=== PATIENT | female | born 1995 | race Caucasian/White ===

== ENCOUNTER 2021-09-11 14:18 | Emergency (ER) | payer OTHER, SELFPAY ==
--- NOTE | ~2021-09-11 | CT_ITS ---
EXAMINATION: CT abdomen pelvis wo con EXAM DATE: 09/11/2021 17:53 INDICATION: Left-sided abdominal pain. TECHNIQUE: Spiral CT of the abdomen and pelvis was performed without contrast. Axial, coronal and s agittal images of the abdomen and pelvis were reviewed. The dose-length product (DLP) for this exami nation was 611.63 mGy-cm. The exposure was tailored according to patient size (auto mA exposure cont rol), and iterative reconstruction (ASIR) was used as additional dose reduction technique. Comparison is made to prior examination from 2013. FINDINGS: The liver, spleen, adrenal glands and pancreas are unremarkable. Gallbladder is unremarkab le. No biliary obstruction. There is 6 mm stone in the proximal aspect of the left ureter, projects over the left L3 transverse process level. Correlate with KUB. Mild left-sided obstructive nephropath y. Several punctate bilateral calyceal stones and faint medullary nephrocalcinosis. The uterus and o varies are unremarkable, no adnexal mass. The bladder is unremarkable. There is no retroperitoneal or pelvic lymphadenopathy. The appendix is normal. The stomach and small bowel are unremarkable. There is expected amount of c olonic stool. No free intraperitoneal gas. The heart is normal in size. There are no pericardial or pleural effusions. The lung bases are unremarkable. There are no osteoblastic or osteolytic les ions identified. IMPRESSION: 1. Left proximal ureteral 6 mm stone, mild obstructive nephropathy; recommend KUB. 2. Punctate nephrolithiasis and mild medullary nephrocalcinosis. Reviewed, dictated and finalized at location A. RRER MACHINE
--- NOTE | ~2021-09-11 | XR_ITS ---
EXAMINATION: XR abdomen/kub 1V EXAM DATE: 09/11/2021 18:03 INDICATION: Left-sided abdominal pain. Left nephrolithiasis. TECHNIQUE: Frontal projection(s) of the abdomen for interpretation. Comparison is made to prior exami nation from 2014. FINDINGS: Left proximal ureteral 6 mm stone is well-visualized, indicated. Left pelvic calcification is a phlebolith correlating with CT obtained earlier same date. Expected amount of colonic stool. No small bowel obstruction or organomegaly. There are no osseous abnormalities identified. IMPRESSION: Left proximal ureteral stone identified. Reviewed, dictated and finalized at location A. S DEVELOPER
--- NOTE | ~2021-09-11 | US_ITS ---
EXAMINATION: US pelvic complete w TV DATE: 09/11/2021 16:37 INDICATION: Left lower quadrant pain TECHNIQUE: Multiple transabdominal and endovaginal sonographic images of the pelvis were obtained. COMPARISON: None. FINDINGS: The uterus measures 6.7 x 4.2 x 2.8 cm. The endometrial complex measures 1 mm. The right ov nuria measures 3.1 x 1.8 x 1.9 cm. The left ovary measures 2.8 x 2.1 x 1.6 cm. There is normal vascular flow in the ovaries. There is no free fluid in the pelvis. IMPRESSION: 1. No sonographic correlate for the patient's symptoms. Reviewed, dictated and finalized at location A. UGATED SHEET MATERIAL SHEETER
[2021-09-11 14:57] VITALS: BP 136/78; PULSE 92; RESP 18; TEMP 36.5; O2SAT 99
[2021-09-11 15:48] LABS: Basophils Absolute Auto 0.1 K/mm3 (0.0-0.1); Basophils Percent Auto 0.4 % (0.2-1.2); Eosinophils Absolute Auto 0.1 K/mm3 (0-0.3); Eosinophils Percent Auto 0.9 % (0-4.4); Hematocrit 39.8 % (37.0-47.0); Hemoglobin 13.1 g/dL (12.0-15.0); Immature Granulocyte Absolute 0.08 K/mm3 (0.00-0.031); Immature Granulocyte Percent A 0.6 % (0-0.5); Lymphocytes Absolute Auto 1.36 K/mm3 (0.9-3.2); Lymphocytes Percent Auto 10.6 % (18.3-44.2); Mean Corpuscular HGB Conc 32.9 g/dl (32-36); Mean Corpuscular Hemoglobin 28.7 pg (26-34); Mean Corpuscular Volume 87.1 fl (80-100); Mean Platelet Volume 9.3 fl (7.4-10.4); Monocytes Absolute Auto 0.5 K/mm3 (0.1-0.6); Monocytes Percent Auto 3.9 % (2.6-8.5); Neutrophils Absolute Auto 10.7 K/mm3 (1.3-6.7); Neutrophils Percent Auto 83.6 % (45.5-73.1); Platelet Count Result 400 k/mm3 (150-375); Red Blood Count 4.57 M/mm3 (4.2-5.4); Red Cell Distribution Width 12.9 % (11.5-14.5); White Blood Count 12.8 K/mm3 (4.5-10.0)
--- NOTE | 2021-09-11 15:52 | ED.GENADULT ---
HPI - General Adult General Chief complaint: Abdominal Pain Stated complaint: abd pain Time Seen by Provider: 09/11/21 15:39 Source: RN notes reviewed History of Present Illness HPI narrative: Patient presents emergency department from home for abdominal pain. Patient states pain began this morning pain is located left lower quadrant does not radiate described as sharp and stabbing. States mild associated nausea. Denies any fevers or chills vomiting diarrhea or any other symptoms. States she took Tylenol at home for the pain this morning with minimal relief Related Data Allergies Allergy/AdvReac Type Severity Reaction Status Date / Time No Known Allergies Allergy Verified 09/11/21 15:39 Review of Systems Review of Systems: Gen.: Denies fevers or chills ENT: Denies congestion Respiratory: Denies shortness of breath or cough CV: Denies chest pain or palpitations GI: See HPI Musculoskeletal: Denies back pain or muscle pain Neuro: Denies numbness, tingling, weakness or focal weakness Skin: Denies rash Except as documented, all other systems reviewed and negative [facility] Past Medical History Medical History (Updated 09/11/21 @ 18:36 by Wilton Amos DO) Patient denies significant medical history Social History Social History Smoking status: Never smoker Exam Narrative: APPEARANCE: No acute distress, nontoxic, resting in bed HEENT: Normocephalic, atraumatic, OMM RESPIRATORY: No respiratory distress, clear to auscultation bilaterally with no rhonchi wheezing or rales CARDIOVASCULAR: RRR s murmur ABDOMINAL: Soft nondistended tender palpation left lower quadrant no tenderness left upper quadrant, right upper quadrant right lower quadrant no rebound MUSCULOSKELETAl: Moves all extremities. No clubbing, cyanosis or edema. NEURO: Awake and alert. Following commands, speech normal, no focal deficits SKIN:: Warm, dry. Normal Color PSYCHIATRIC: Normal affect/mood Course Course Emergency Course: Call discussed Dr. Womack agrees plan for discharge to follow-up as an outpatient Patient states she is feeling much better at this time Discussed with patient results of workup and diagnosis. Discussed need for follow-up with primary care, proper use of medication, and reasons to return to the emergency department. Patient understands and agrees to current treatment plan Vital Signs Vital signs: Vital Signs Temperature 97.7 F 09/11/21 14:57 Pulse Rate 92 09/11/21 14:57 Respiratory Rate 18 09/11/21 14:57 Blood Pressure 136/78 09/11/21 14:57 Pulse Oximetry 99 09/11/21 14:57 Temperature 97.7 F 09/11/21 14:57 Pulse Rate 92 09/11/21 14:57 Respiratory Rate 18 09/11/21 14:57 Blood Pressure 136/78 09/11/21 14:57 Pulse Oximetry 99 09/11/21 14:57 Medical Decision Making Vital Signs Vital Signs: Vital Signs Temperature 97.7 F 09/11/21 14:57 Pulse Rate 92 09/11/21 14:57 Respiratory Rate 18 09/11/21 14:57 Blood Pressure 136/78 09/11/21 14:57 Pulse Oximetry 99 09/11/21 14:57 Temperature 97.7 F 09/11/21 14:57 Pulse Rate 92 09/11/21 14:57 Respiratory Rate 18 09/11/21 14:57 Blood Pressure 136/78 09/11/21 14:57 Pulse Oximetry 99 09/11/21 14:57 Lab Data Result diagrams: 09/11/21 15:42 09/11/21 15:42 Labs: Lab Results 09/11/21 09/11/21 09/11/21 Range/Units 15:42 15:42 16:30 WBC 12.8 H (4.5-10.0) K/mm3 RBC 4.57 (4.2-5.4) M/mm3 Hgb 13.1 (12.0-15.0) g/dL Hct 39.8 (37.0-47.0) % MCV 87.1 (80-100) fl MCH 28.7 (26-34) pg MCHC 32.9 (32-36) g/dl RDW 12.9 (11.5-14.5) % Plt Count 400 H (150-375) k/mm3 MPV 9.3 (7.4-10.4) fl Immature Gran % (Auto) 0.6 H (0-0.5) % Neut % (Auto) 83.6 H (45.5-73.1) % Lymph % (Auto) 10.6 L (18.3-44.2) % [place] % (Auto) 3.9 (2.6-8.5) % Eos % (Auto) 0.9 (0-4.4) % Baso % (A
[2021-09-11 16:04] LABS: Alanine Aminotransferase 24 U/L (4-35); Albumin Level 4.5 g/dL (3.5-5.1); Alkaline Phosphatase 98 U/L (38-126); Anion Gap 10 mmol/L (8-16); Aspartate Amino Transferase 26 U/L (14-36); Bilirubin,Total 0.6 mg/dL (0.2-1.3); Blood Urea Nitrogen 15 mg/dL (7-17); Calcium 9.4 mg/dL (8.4-10.2); Carbon Dioxide 25 mmol/L (22-30); Chloride 103 mmol/L (98-107); Estimated CRCL calculation 87 ml/min; Estimated Glomerular Filt Rate > 60; Glucose 134 mg/dL (65-110); Lipase 28 U/L (23-300); Potassium 4.2 mmol/L (3.4-5.0); Sodium 138 mmol/L (137-145)
--- NOTE | 2021-09-11 16:20 | PC.NURSE ---
Pt to ultrasound.
[2021-09-11] MEDS: KETOROLAC 30 MG/ML VIAL (*BKC) IV PUSH (16:31)
[2021-09-11] MEDS: SODIUM CHLORIDE 0.9% IV 1,000 ML 999 ML IV CONT (16:31)
[2021-09-11 17:12] LABS: Add Urine Microscopic? YES; Appearance Urine Cloudy (Clear); Bilirubin Urine Negative (Negative); Blood Urine 3+ (Negative); Color Urine Yellow (Yellow); Glucose Urine UA Negative (Negative); Ketones Urine Negative (Negative); Leukocyte Esterase Ur Negative LEU/UL (Negative); Mucus Urine Heavy /lpf; Nitrate Urine Negative (Negative); Protein Urine 2+ mg/dL (Negative); RBC Urine >75 /hpf (0-2); Specific Grav Ur 1.023 (1.001-1.035); Squamous Epithelial Cell Urine Moderate /hpf (Few); Urobilinogen Urine Negative mg/dL (<2.0); WBC Urine 0-3 /hpf
[2021-09-11] MEDS: TAMSULOSIN HCL 0.4 MG CAPSULE PO (18:29)
[2021-09-11 18:50] VITALS: BP 118/75; PULSE 80; RESP 15; O2SAT 100
== END 2021-09-11 18:54 | disposition home or self-care (01) ==
PROVIDERS: Emergency Medicine; Emergency Provider Emergency Medicine
DX: N13.9 Obstructive and reflux uropathy, unspecified (principal); N20.2 Calculus of kidney with calculus of ureter
CPT/HCPCS: 36415; 74018; 74176; 76830; 76856; 80053; 81001; 81025; 83690; 85025; 96361; 96374; 99284; A9270; J1885; J7030

== ENCOUNTER 2021-10-09 05:00 | Emergency (ER) | payer OTHER, SELFPAY ==
--- NOTE | ~2021-10-09 | CT_ITS ---
EXAMINATION: CT abdomen pelvis wo con EXAM DATE: 10/09/2021 06:11 INDICATION: flank pain fluid / history of kidney stone, left lower quadrant pain, fever. Recent COVI D diagnosis. TECHNIQUE: Spiral CT of the abdomen and pelvis was performed without contrast. Axial, coronal and sag ittal images were reviewed. The dose-length product (DLP) for this examination was 549.21 mGy-cm. T he exposure was tailored according to patient size (auto mA exposure control), and iterative reconstr uction (ASIR) was used as additional dose reduction technique. Comparison is made to prior examinatio n from 09/11/2021. FINDINGS: There is a left mid ureteral 6 mm stone, mild hydroureteronephrosis. Additional punctate ri ght mid calyceal stone. The uterus is anteverted and morphologically normal. The bladder is unrema rkable. The liver, spleen, adrenal glands and pancreas are unremarkable. Gallbladder is unremarkabl e. No biliary obstruction. There is no retroperitoneal or pelvic lymphadenopathy. There are no findings to suggest appendicitis. The stomach and small bowel are unremarkable. There is expected amount of colonic stool. No free intraperitoneal gas. The heart is normal in size. T here are no pericardial or pleural effusions. The lung bases are unremarkable. There are no osteobl astic or osteolytic lesions identified. IMPRESSION: 1. Left mid ureteral 6 mm stone, mild hydronephrosis. consultants would appreciate baseline KUB f or follow-up. 2. Punctate right nephrolithiasis. Reviewed, dictated and finalized at location G. S ROUTER IMPRESSION: 1. Left mid ureteral 6 mm stone, mild hydronephrosis. consultants would leonides reciate baseline KUB for follow-up. 2. Punctate right nephrolithiasis.
[2021-10-09 05:00] VITALS: BP 123/71; PULSE 130; RESP 16; TEMP 38.5; O2SAT 98
[2021-10-09 05:42] LABS: Basophils Absolute Auto 0.02 K/mm3 (0.00-0.10); Basophils Percent Auto 0.1 % (0.0-1.0); Hematocrit 34.2 % (35.0-49.0); Hemoglobin 11.5 g/dL (12.0-15.0); Immature Granulocyte Absolute 0.11 K/mm3 (0.00-0.00); Immature Granulocyte Percent A 0.7 % (0.0-0.0); Lymphocytes Percent Auto 4.4 % (18.0-42.0); Mean Corpuscular HGB Conc 33.6 g/dL (32.0-36.0); Mean Corpuscular Hemoglobin 28.6 pg (27.0-31.0); Mean Corpuscular Volume 85.1 fL (78.0-102.0); Mean Platelet Volume 9.5 fl (9.2-11.8); Monocytes Absolute Auto 1.37 K/mm3 (0.10-0.90); Monocytes Percent Auto 8.6 % (2.0-11.0); Neutrophils Absolute Auto 13.7 K/mm3 (1.7-7.2); Neutrophils Percent Auto 86.2 % (50.0-70.0); Platelet Count Result 262 K/mm3 (150-420); Red Blood Count 4.02 M/mm3 (4.20-5.40); Red Cell Distribution Width 12.4 % (11.6-14.4); White Blood Count 15.9 K/mm3 (4.8-10.8)
[2021-10-09 05:45] LABS: Add Urine Microscopic? YES; Appearance Urine Clear (Clear); Bilirubin Urine Negative (Negative); Blood Urine 2+ (Negative); Color Urine Brown (Yellow); Glucose Urine UA Negative (Negative); Ketones Urine 3+ (Negative); Leukocyte Esterase Ur 2+ (Negative); Nitrate Urine Positive (Negative); Protein Urine 2+ (Negative); Specific Grav Ur >= 1.030 (1.010-1.020); Urobilinogen Urine 0.2 mg/dL (0.2-1.0)
[2021-10-09 05:47] LABS: Pregnancy On Board Control Positive; Urine Pregnancy Test Negative
[2021-10-09] MEDS: SODIUM CHLORIDE 0.9% IV 1,000 ML 999 ML IV CONT (05:49)
[2021-10-09] MEDS: KETOROLAC 30 MG/ML VIAL (*BKC) IV PUSH (05:52)
[2021-10-09 05:53] LABS: Bacteria Urine 3+ /hpf; RBC Urine >75 /hpf (0-2); Squamous Epithelial Cell Urine Few /hpf (Few); WBC Urine >75 /hpf (0-3)
[2021-10-09 05:59] LABS: Alanine Aminotransferase 17 U/L (14-59); Albumin Level 3.3 g/dL (3.4-5.0); Alkaline Phosphatase 78 U/L (46-116); Anion Gap 13 mmol/L (8-16); Aspartate Amino Transferase 12 U/L (15-37); Bilirubin,Total 0.7 mg/dL (0.00-1.00); Blood Urea Nitrogen 14 mg/dL (7-18); Calcium 8.6 mg/dL (8.5-10.1); Carbon Dioxide 23 mmol/L (21-32); Chloride 99 mmol/L (98-108); Estimated CRCL calculation 80 ml/min; Estimated Glomerular Filt Rate > 60; Glucose 139 mg/dL (70-99); Osmolality Calculated 282 mOsm/kg (285-295); Potassium 3.9 mmol/L (3.5-5.1); Sodium 135 mmol/L (136-145); Total Protein 7.4 g/dL (6.4-8.2)
[2021-10-09 06:47] VITALS: BP 97/57; PULSE 102; RESP 16; O2SAT 96
--- NOTE | 2021-10-09 06:50 | ED.ABDPAIN ---
HPI - Abdominal Pain General Chief Complaint: Abdominal Pain Stated Complaint: abdominal pain Source: patient Mode of arrival: ambulatory Limitations: no limitations History of Present Illness HPI narrative: this is a 26-year-old female with a history of kidney stone and currently was diagnosed in early September with a left kidney stone, the patient started developing flank pain radiating into her left groin with some no hematuria, with some no fever chills patient as being diagnosed with COVID, there is no nausea or vomiting no chest pain no shortness of breath. MD elicited complaint: abdominal pain and flank pain Pertinent past history: kidney stones Onset (ago): day(s) Pain Consistency: intermittent Location: L flank Severity: moderate Pain scale (0-10): 7 Quality: sharp Related Data Allergies Allergy/AdvReac Type Severity Reaction Status Date / Time No Known Allergies Allergy Verified 10/09/21 05:25 Review of Systems Review of Systems: All systems reviewed & are unremarkable except as noted in HPI and below PMFSH Past Medical History Medical History Patient denies significant medical history Surgical History Surgical History H/O removal of cyst neck Social History Social History Smoking status: Never smoker Alcohol intake: current Alcohol use details: social Substance use: never Substance use type: does not use Additional living arrangements comments: parents Additional occupation/education comments: [employer] Exam Const: General: no acute distress and alert Orientation/consciousness: patient oriented x3 HENMT: Head: normal to inspection Eyes: Conjunctivae: conjunctivae normal Pupils: Equal, round and reactive pupils present Neck: Neck: normal visual inspection, no lymphadenopathy and no meningeal signs Chest: Chest palpation & inspection: normal inspection of the chest Resp: Effort & Inspection: normal respiratory effort Auscultation: clear to auscultation bilaterally Cardio: Rate: regular rate Rhythm: regular rhythm GI: GI Palp: Yes Soft to palpation Percussion: Yes normal to percussion : General: Yes no CVA tenderness Urinary Catheter: Urinary Catheter: patent and draining Back/Spine/Pelvis: Back: no CVA tenderness Skin: General skin exam: normal color Rashes: no rashes Neuro: General: patient oriented x3 and moves all extremities Extrem: General: normal to inspection Psych: Mental Status: mental status grossly normal Course Course Emergency Course: CT scan reviewed with patient, blood work reviewed with patient which shows urinary tract infection will give her a dose of ceftriaxone, patient received IV fluids and Toradol. Patient states that her pain has improved. Vital Signs Vital signs: Vital Signs Temperature 38.5 C H 10/09/21 05:00 Pulse Rate 130 H 10/09/21 05:00 Respiratory Rate 16 10/09/21 05:00 Blood Pressure 123/71 10/09/21 05:00 Pulse Oximetry 98 10/09/21 05:00 Temperature 38.5 C H 10/09/21 05:00 Pulse Rate 102 H 10/09/21 06:47 Respiratory Rate 16 10/09/21 06:47 Blood Pressure 97/57 L 10/09/21 06:47 Pulse Oximetry 96 10/09/21 06:47 MDM - Abdominal Pain Lab Data Result diagrams: 10/09/21 05:39 10/09/21 05:39 Labs: Lab Results 10/09/21 10/09/21 10/09/21 Range/Units 05:39 05:39 05:39 WBC 15.9 H (4.8-10.8) K/mm3 RBC 4.02 L (4.20-5.40) M/mm3 Hgb 11.5 L (12.0-15.0) g/dL Hct 34.2 L (35.0-49.0) % MCV 85.1 (78.0-102.0) fL MCH 28.6 (27.0-31.0) pg MCHC 33.6 (32.0-36.0) g/dL RDW 12.4 (11.6-14.4) % Plt Count 262 (150-420) K/mm3 MPV 9.5 (9.2-11.8) fl Immature Gran % (Auto) 0.7 H (0.0-0.0) % Neut % (Auto) 86.2 H (50.0-70.0) % Lymph % (Auto) 4.4
[2021-10-09 07:40] VITALS: BP 100/61; PULSE 96; RESP 18; TEMP 36.1; O2SAT 98
== END 2021-10-09 07:41 | disposition home or self-care (01) ==
PROVIDERS: Emergency Provider Emergency Medicine
DX: N20.1 Calculus of ureter (principal)
CPT/HCPCS: 36415; 74176; 80053; 81001; 81025; 85025; 96361; 96365; 96375; 99283; 99284; J0696; J1885; J7030

== ENCOUNTER 2025-07-13 12:18 | Emergency (ER) | payer OTHER, SELFPAY ==
--- OUTSIDE RECORDS SUMMARY | 2025-07-13 12:21 | XMS_ITS | Data Portability ---
Author Organization [facility] Address [address] [place] [address] [place] [address] Assessment Encounter Date Assessment Date Assessment LastModified by Organization Details LastModified Time 07/11/2025 07/11/2025 Patient is ___weeks . Discussed plan. Not available 07/11/2025 09:40:56 Plan of Treatment Reminders Order Date Submit Date Provider Last Modified By Organization Details Last Modified Time Details Appointments U/S OB SNEAK PEAK 2024 08:30A M ULTRASOUND Not available Not available Not available OB SCREEN 2024 10:00A M Janette ORELLANA MD Not available Not available Not available Lab None recorde d. Referral None recorde d. Procedures None recorde d. Surgeries None recorde d. Imaging US, obstetr ic, transva ginal 2024 025 [email or web address] [facility], [address], [place], [address], 07/10/2025 11:30:49 Medication Orders None recorde d. Patient TargetsNo targets recorded. Patient InstructionsNo instructions recorded. Reason for Referral None Reported. Results Created Date Observation Date Name Description Value Unit Range Abnormal Flag Note LastModifiedBy Organization Detail LastModifiedTime 07/09/2007/09/2025 US, obste tric, trans vagin al No observ ation record ed. [facility] [address], [place], [address], 07/09/2025 12:33:30 07/09/2007/0907/09/2025 US, obste tric, trans vagin al No observ ation record ed. [email or web address], [place], [address], 07/10/2025 11:26:57 Result Notes None recorded. Procedures Surgical History Date Name Laterality Status Provider Name and Address Organization Details Recorded Time Date of Last Pap Smear completed [facility] 07/11/2025 09:44:51 excision of esophageal lesion completed [facility] 07/11/2025 09:47:37 Imaging Results None recorded. Procedure Notes None recorded. Medical Equipment None Reported. Allergies No known drug allergies Medications Name Sig Start Date Stop Date Status Note LastModified by Organization Details LastModified Time active Not Available Not Avai lable Not Available Vitals Date Recorded Body height Body mass index (BMI) Body weight Systolic And Diastolic Provider Name and Address Organization Details Last Updated DateTime 07/11/2025 165.1 cm 30.3 kg/m2 40371.81 g 130/78 mm[Hg] [facility] 07/11/2025 09:44:07 Social History Question Answer Notes LastModified by Organizat ion Details LastModified Time Do You Have An Advance Directive? No Information n ot available 07/11/2025 How Many Years Have You Consumed Alcohol? 8 Information not available 07/11/2025 Are You Blind Or Do You Have Difficulty Seeing? No Information n ot available 07/11/2025 What Is Your Level Of Caffeine Consumption? Occasional Information not available 07/11/2025 How Much Tobacco Do You Chew? None Information not available 07/11/2025 In The 14 Days Before Symptom Onset, Have You Had Close Contact With A Laboratory-confirm ed COVID-19 While That Case Was Ill? No Information n ot available 07/11/2025 In The 14 Days Before Symptom Onset, Have You Had Close Contact With A Person Who Is Under Investigation For COVID-19 While That Person Was Ill? No Information not available 07/11/2025 Have You Been To An Area Known To Be High Risk For COVID-19? No Information not available 07/11/2025 Are You Deaf Or Do You Have Serious Difficulty Hearing? No Information not available 07/11/2025 What Type Of Diet Are You Following? REGULAR Information n ot available 07/11/2025 What Is The Highest Grade Or Level Of School You Have Completed Or The Highest Degree You Have Received? [id number] Information not available 07/11/2025 Are There Any Guns Present In Your Home? No Information not available 07/11/2025 Do You Use Protection During Sex? No Information not available 07/11/2025 Do You Use Your Seat Belt Or Car Seat Routinely? Yes Information not available 07/11/2025 Do You Have Smoke And Carbon Monoxide Detectors In Your Home? Yes Information not available 07/11/2025 How Much Tobacco Do You Smoke? No Information not available 07/11/2025 Do You Use Sunscreen Routinely? Yes Information not available 07/11/2025 How Many Years Have You Smoked Tobacco? 0 Information not available 07/11/2025 Have You Used IV Drugs? No Information not available 07/11/2025 Sex: Unknown Functional Status Question Answer Note LastModified by Organizat ion Details LastModified Time Do you use any illicit or recreational drugs? No Information not available 07/11/2025 What is your level of alcohol consumption? Occasional Information not available 07/11/2025 Are you able to walk independently without assistance or assistive devices? 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 Occasional Information not available 07/11/2025 Mental Status Question Answer Note LastModified by Organization D etails LastModified Time Do you feel stressed (tense, restless, nervous, or anxious, or unable to sleep at night)? [id number] Information not available 07/11/2025 Family History Relationship Description Onset Age of this Age Resolved Age Notes LastModified by Organization Details LastModified Time Father No current problems or disability Not available 07/11 09:46:56 Mother No current problems or disability Not available 07/11 09:46:56 Medical History Condition Response Allergies (Food, seasonal, environmental ) N Other N Drug/Latex Allergies/Reactions N Blood Transfusion N Breast Cancer N Dermatologic Disorders N Lung Disease N Defects or Inherited Disease N Breast Problem N Gestational Diabetes N Hematologic disorders N Anesthesia Complications N History of STI N Deep Vein Thrombosis N Polycystic ovary syndrome N Anxiety Disorder N Autoimmune disease N Arthritis N Polyps N Infertility N Acid Reflux (GERD) N History of abnormal pap N Cancer N Varicosities N Stroke N Neurologic/Epilepsy N Endometriosis N High Cholesterol N Fibromyalgia N Headaches N Kidney Disease N Heart Problems N Thyroid Problems N Kidney or Bladder Problems N GI Problems N Eating Disorder N Anemia N Art (IVF or FET) N Psychiatric Illness N Ovarian Cancer N Diabetes N Pulmonary (TB, Asthma) N Hepatitis/Liver Disease N No Past Medical History Y Eczema N Urinary Tract Infection N Abuse/Domestic Violence N Asthma N Trauma/Violence N Depression/ depression N Heart Disease N Pre-Eclampsia N Hypertension N Osteoporosis N Thrombophilias N Gynecological History Statement/Question Response Abnormal Pap N Flow Moderate Date of LMP 05/05/2025 On BCP's at Conception? N Was last menstrual period normal Y STIs/STDs N HPV Vaccine Y Duration of Flow (days) 5 Current Control Method Age at First Child 30 Are cycles usually normal N Frequency of Cycle (Q days) Sexually Active? Y Menses Monthly N Age of first menstrual cycle 16 Date of Last Pap Smear 06/21/2025 Sexual Problems? N LMP Definite Obstetrics History GPAL:G 0 P 0 0 0 0 Past Encounters Encounter ID Performer Location Encounter Start Date Encounter Closed Date Diagnosis/Indication Diagnosis SNOMED-CT Code Diagnosis ICD10 Code Diagnosis IMO Codes Diagnosis Note [id number] Julio Cesar Orellana MD [facility] [address],[facility] [address] 07/09/2025 11:31:09 07/09/2025 12:11:30 Uterine size for dates discrepancy 750149264 O26.841 Z3A.01 [id number] Julio Cesar Orellana MD [facility] [address] [address] 07/11/2025 09:22:23 07/11/2025 10:22:44 Amenorrhea [id number] N91.2 [id number] This patient is a 29-year-ol d female presents for amenorrhea . She has a positive test. She had an ultrasound that revealed an empty gestationa l sac. We are going to obtain serial HCGs to confirm viability of the . She has no complaints . She denies any cramping or bleeding. She has no medical issues. She has no obstetric history. This is her 1st gestation. We agreed to observe. We will follow up on her laboratory evaluation . She will have a ultrasound and OB screening in 2 weeks. Spent 20 minutes on the patient's care in total. Health Concerns Section Related Observation LastModified by Organization Detai ls LastModified Time None Recorded Concern Status LastModified by Organization Details LastModified Time None Recorded Advance Directives Directive N: Payers Insurance Date Sequence Insurance Name Policy Number Policy Calzada Covered Member ID Calzada Member ID Guarantor Name 07/10/2025 1 [facility] [id number] Jamiareji Andrade [id number] Jamia Andrade Notes Date Note Type Note Provider Name and Address Organization Details Recorded Time 07/11/2025 text/html Generic HPI TemplateReported by Patient This patient is a 29-year-old female presents for amenorrhea. She has a positive test. She had an ultrasound that revealed an empty gestational sac. We are going to obtain serial HCGs to confirm viability of the . She has no complaints. She denies any cramping or bleeding. She has no medical issues. She has no obstetric history. This is her 1st gestation. We agreed to observe. We will follow up on her laboratory evaluation. She will have a ultrasound and OB screening in 2 weeks. Spent 20 minutes on the patient's care in total. Julio Cesar Orellana MD [address], [place], [address], [facility] 07/11/2025 10:22:25 OBGyn Episode No OBEpisode recorded.
[2025-07-13 12:27] VITALS: BP 123/78; PULSE 77; RESP 18; TEMP 36.3; O2SAT 100
--- NOTE | 2025-07-13 12:38 | ED.FEMALEGU ---
HPI - Female Genitourinary General Chief complaint: Urogenital-Female Stated complaint: UTI Source: patient and RN notes reviewed Mode of arrival: ambulatory Limitations: no limitations History of Present Illness HPI Narrative: 29 y/o female presented for c/o urinary frequency with slight burning. Onset this morning. Denies hematuria, nausea, vomiting, abdominal pain, flank pain, constipation, diarrhea, fevers or chills. Endorses approximately 5-6 weeks gestation per [place]. LMP 05/2025. Denies concern for std. Related Data Home Medications ?Medication ?Instructions ?Recorded ?Confirmed ?Last Taken ?Type No Home Medications 01/22/22 01/22/22 Unknown History Allergies Allergy/AdvReac Type Severity Reaction Status Date / Time No Known Allergies Allergy Verified 07/13/25 12:35 Review of Systems Review of Systems: CONSTITUTIONAL: Denies body aches, fever, chills, or sweats. CARDIOVASCULAR: Denies chest pain, palpitations, or edema. RESPIRATORY: Denies cough or dyspnea. GASTROINTESTINAL: Denies abdominal pain, nausea, vomiting, or diarrhea. GENITOURINARY: Reports dysuria, frequency, denies urgency, hematuria, flank pain, discharge SKIN: Denies rash, itching, or wounds. MUSCULOSKELETAL: Denies back pain or myalgia. [facility] Past Medical History Medical History Patient denies significant medical history Surgical History Surgical History H/O removal of cyst neck Social History Social History Smoking status: Never smoker Alcohol intake: current Alcohol use details: social Substance use: never Substance use type: does not use Living arrangements: with family Additional living arrangements comments: parents Occupation/Education: occupation Additional occupation/education comments: Surface [employer] Comments At time of signature, I have reviewed and agree with nursing past medical, surgical, social and family history unless otherwise noted. Please see nursing chart for further information. There is no relevant family history pertinent to the presenting complaint Exam Narrative: GENERAL: Well-appearing and in no acute distress. ENT: Mucous membranes pink and moist. NECK: Normal AROM. Supple. CHEST: No respiratory distress. Clear to auscultation. HEART: Regular rate and rhythm. ABDOMEN: Soft, nontender, nondistended, normal active bowel sounds. No CVA tenderness SKIN: Warm, dry, no rash. NEURO: No focal deficits. Alert and oriented x3. Gait steady. PSYCH: Normal affect. Course Course Emergency Course: Patient is aware of diagnosis, understands and agrees to treatment plan. Anticipatory guidance given. Patient agrees to follow-up as directed and is aware of reasons to seek care at the emergency department. Portions of this record may have been created with voice recognition software Level of Care: Express Care Visit Vital Signs Vital signs: Vital Signs Temperature 97.3 F L 07/13/25 12:27 Pulse Rate 77 07/13/25 12:27 Respiratory Rate 18 07/13/25 12:27 Blood Pressure 123/78 07/13/25 12:27 Pulse Oximetry 100 07/13/25 12:27 Oxygen Delivery Room Air 07/13/25 12:27 Temperature 97.3 F L 07/13/25 12:27 Pulse Rate 77 07/13/25 12:27 Respiratory Rate 18 07/13/25 12:27 Blood Pressure 123/78 07/13/25 12:27 Pulse Oximetry 100 07/13/25 12:27 Oxygen Delivery Room Air 07/13/25 12:27 Reviewed MDM - Female Genitourinary MDM Narrative Medical decision making narrative: Discussed physical exam findings and negative urine dip. Will culture. Advised supportive measures and signs/symptoms to go to the ER. Pt is appropriate for outpt treatment and f/u. Differential Diagnosis Differential diagnosis: Likely urinary tract infection, bacterial vaginosis and cystitis Lab Data Labs: Lab Results 07/13/25 Range/Units 12:39 POC Urine Color Yellow POC Urine Clarity Cloudy POC Urine pH 6.0 POC Ur Specif [place] 1.020 POC Urine Protein Negative (Negative) POC Ur Glucose (UA) Negative (Negative) POC Urine Ketones 1+ (Negative) POC Urine Blood Negative (Negative) POC Urine Nitrite Negative (Negative) POC Urine Bilirubin Negative (Negative) POC Urine Urobilinogen 0.2 POC U Leukocyte Esteras Negative (Negative) Discharge Plan Discharge Clinical Impression: Dysuria Patient Disposition: Home Condition: Stable Instructions: Antibiotic Form, Urinary Tract Infection in (ED) Additional Instructions: Your urine will be sent of for a culture to determine if bacteria is causing your symptoms. If the culture shows a UTI, you will be notified and an antibiotic will be called in for you. Continue to drink plenty of water you will need to follow up with your PCP or Obgyn if symptoms persist, call today to schedule follow-up appointment. Go to the ER for any worsening symptoms or concerns. Patient Language: [place] Prescriptions: No Action No Home Medications Follow-up/Referrals: Tatum,Annette Gallegos NP [Primary Care Provider, Family Practice]
[2025-07-13 12:41] LABS: EDUAAPPEAR Cloudy; EDUABILI Negative (Negative); EDUABLOOD Negative (Negative); EDUACOLOR1 Yellow; EDUAGLUCOSE Negative (Negative); EDUAKETONE 1+ (Negative); EDUALEUKO Negative (Negative); EDUANITRATE Negative (Negative); EDUAPH 6.0; EDUAPROTEIN Negative (Negative); EDUASPGRAVITY 1.020; EDUAUROBILI 0.2
== END 2025-07-13 12:51 | disposition home or self-care (01) ==
PROVIDERS: Emergency Provider Nurse Practitioner Family; PCP Nurse Practitioner Family
DX: R30.0 Dysuria (principal)
CPT/HCPCS: 81003; 87086; 99213; G0463